=== PATIENT | male | born 1955 | race Caucasian/White ===

== ENCOUNTER 2019-12-10 05:31 | Emergency (ER) | payer MEDICAID, OTHER ==
[~2019-12-10] VITALS: Ht 165.1 cm; Wt 66.7 kg
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
--- NOTE | 2019-12-10 06:17 | NUR ---
AT BEDSIDE FOR EVAL.
--- NOTE | 2019-12-10 06:32 | NUR ---
SENT TO CT.
--- NOTE | 2019-12-10 07:01 | NUR ---
EMT AT BEDSIDE FOR WOUND CARE.
--- NOTE | 2019-12-10 07:15 | NUR ---
Patient is resting comfortably in bed. Easily aroused. VSS.
[2019-12-10 09:25] VITALS: BP 150/76
--- NOTE | 2019-12-10 09:25 | NUR ---
PT. VERBALIZED UNDERSTANDING OF AFTERCARE INSTRUCTIONS.Patient discharged to home in stable condition. Written and verbal after care instructions given. Patient verbalizes understanding of instruction.
== END 2019-12-10 09:26 | disposition home or self-care (01) ==
LOC: ER 05:36
DX: S02.2XXA Fracture of nasal bones, initial encounter for closed fracture (principal); S00.81XA Abrasion of other part of head, initial encounter; Z88.0 Allergy status to penicillin; Y04.0XXA Assault by unarmed brawl or fight, initial encounter; Y93.89 Activity, other specified; Y92.89 Other specified places as the place of occurrence of the external cause; Y99.8 Other external cause status
CPT/HCPCS: 70450; 70486; 99285; A6403

== ENCOUNTER 2020-01-10 17:08 | Emergency (ER) | payer MEDICAID ==
[~2020-01-10] VITALS: Ht 165.1 cm; Wt 63.5 kg
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
[2020-01-10] MEDS ORDERED: DEXAMETHASONE SOD PHOSPHATE 10 MG/ML VIAL ONE (17:47)
[2020-01-10] MEDS ORDERED: ACETAMINOPHEN 325 MG TABLET ONE (17:47)
[2020-01-10] MEDS: ACETAMINOPHEN 325 MG TABLET PO ONE (17:51)
[2020-01-10] MEDS: DEXAMETHASONE SOD PHOSPHATE 10 MG/ML VIAL IM ONE (17:51)
--- NOTE | 2020-01-10 18:02 | NUR ---
PT PROVIDED WITH MEAL
--- NOTE | 2020-01-10 18:48 | NUR ---
Patient given written and verbal discharge instructions. Patient verbalizes understanding of instructions. Patient is ambulatory with steady gait. Refuses offer of prison placement. Patient given list of available shelters in surrounding area. In proper clothing upon discharge, name band removed. All belongings with patient.
[2020-01-10 18:50] VITALS: BP 132/74
== END 2020-01-10 18:51 | disposition home or self-care (01) ==
LOC: ER 17:10
DX: S49.91XA Unspecified injury of right shoulder and upper arm, initial encounter (principal); R07.89 Other chest pain; Z59.0 Homelessness; Z88.0 Allergy status to penicillin; X58.XXXA Exposure to other specified factors, initial encounter; Y93.89 Activity, other specified; Y92.89 Other specified places as the place of occurrence of the external cause; Y99.8 Other external cause status
CPT/HCPCS: 71045; 73030; 96372; 99284; J1100

== ENCOUNTER 2020-01-11 16:59 | Emergency (ER) | payer MEDICAID ==
[~2020-01-11] VITALS: Ht 157.5 cm; Wt 59.0 kg
[2020-01-11 17:04] VITALS: BP 140/75
[2020-01-11 18:19] LABS: BASOPHILS % (AUTO) 0.1 % (0.0-2.0); HEMATOCRIT 35 % (39-51); HEMOGLOBIN 11.7 g/dL (13.5-17.5); LYMPHOCYTES # (AUTO) 0.5 /CMM (0.8-4.8); MEAN CORPUSCULAR HGB CONC 33 g/dl (31.0-36.0); MEAN CORPUSCULAR VOLUME 92 fL (80-96); MONOCYTES # (AUTO) 0.2 /CMM (0.1-1.30); MONOCYTES % (AUTO) 4.4 % (2.0-12.0); NEUTROPHILS # (AUTO) 4.9 /CMM (1.8-8.9); NEUTROPHILS % (AUTO) 86.5 % (43.0-81.0); PLATELET COUNT (AUTO) 164 /CMM (150-450); RED BLOOD CELL COUNT(AUTO) 3.85 MIL/uL (4.5-6.0); WHITE BLOOD COUNT (AUTO) 5.6 K/uL (4.3-11.0)
[2020-01-11 18:34] LABS: CALCIUM, SERUM 8.5 mg/dL (8.5-10.1); CREATININE 0.9 mg/dL (0.6-1.3); POTASSIUM 3.6 mmol/L (3.5-5.1)
--- NOTE | 2020-01-11 19:16 | NUR ---
Took over pt care. Pt ambulatory with steady gait. Provided with food and tap card. Patient discharged to home in stable condition. Written and verbal after care instructions given. Patient verbalizes understanding of instruction.
== END 2020-01-11 19:18 | disposition home or self-care (01) ==
LOC: ER 17:03
DX: R53.1 Weakness (principal); D64.9 Anemia, unspecified; F17.200 Nicotine dependence, unspecified, uncomplicated; Z88.0 Allergy status to penicillin; Z59.0 Homelessness
CPT/HCPCS: 36415; 80048-TC; 83735-TC; 85025-TC

== ENCOUNTER 2020-02-02 16:19 | Emergency (ER) | payer MEDICAID ==
[~2020-02-02] VITALS: Ht 157.5 cm; Wt 60.3 kg
[2020-02-02] MEDS ORDERED: ACETAMINOPHEN 325 MG TABLET PO ONE (18:00)
--- NOTE | 2020-02-02 18:30 | NUR ---
dinner tray given
[2020-02-02] MEDS ORDERED: ACETAMINOPHEN 325 MG TABLET ONE (18:50)
--- NOTE | 2020-02-02 20:15 | NUR ---
Patient discharged to home in stable condition. Written and verbal after care instructions given. pt aox4. Patient verbalizes understanding of instruction. ambulatory with a steady gait. pt provided with food, dressed with appropirate clothing, pt provided with halfway info and tap card.
[2020-02-02 20:27] VITALS: BP 124/75
== END 2020-02-02 20:28 | disposition home or self-care (01) ==
LOC: ER 16:40
DX: M25.511 Pain in right shoulder (principal); G89.29 Other chronic pain; F17.200 Nicotine dependence, unspecified, uncomplicated; Z59.0 Homelessness; Z88.0 Allergy status to penicillin; Z60.2 Problems related to living alone

== ENCOUNTER 2020-02-04 14:13 | Emergency (ER) | payer MEDICAID ==
[~2020-02-04] VITALS: Ht 157.5 cm; Wt 60.3 kg
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
--- NOTE | 2020-02-04 14:41 | NUR ---
Dr Isabel at bedside
--- NOTE | 2020-02-04 15:23 | NUR ---
Patient given written and verbal discharge instructions. Patient verbalizes understanding of instructions. Patient is ambulatory with steady gait. Refuses offer of jail placement. Patient given list of available shelters in surrounding area. In proper clothing upon discharge, name band removed. All belongings returned.
[2020-02-04 15:26] VITALS: BP 139/79
== END 2020-02-04 15:26 | disposition home or self-care (01) ==
LOC: ER 14:17
DX: F10.129 Alcohol abuse with intoxication, unspecified (principal); F17.200 Nicotine dependence, unspecified, uncomplicated; Z88.0 Allergy status to penicillin; Z60.2 Problems related to living alone; Y90.9 Presence of alcohol in blood, level not specified

== ENCOUNTER 2020-02-10 19:30 | Emergency (ER) | payer MEDICAID, MEDICARE ==
[~2020-02-10] VITALS: Ht 170.2 cm; Wt 66.7 kg
--- NOTE | 2020-02-10 19:39 | NUR ---
JOSE ALEJANDRO FROM [facility]. TO ER BED 11. AAOX4. NOT IN RESP DISTRESS, BRETHING EVEN AND UNLABORED. CAME IN FOR "NOT FEELING WELL", R SIDED BODY PAIN AND FEELING NERVOUS. NO NEURO DEFICIT NOTED. PT STATES THAT HE HAS PAIN FROM R SIDE OF HEAD DOWN TO HIS R LEG. AWAITING MD FOR EVAL.
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
[2020-02-10] MEDS ORDERED: IV NS 0.9% 1,000 ML BAG IV ONE (20:00)
[2020-02-10 20:05] LABS: EOSINOPHILS % (AUTO) 5.8 % (0.0-6.0); HEMATOCRIT 36 % (39-51); LYMPHOCYTES # (AUTO) 1.4 /CMM (0.8-4.8); LYMPHOCYTES % (AUTO) 30.2 % (20.0-44.0); MEAN CORPUSCULAR HGB CONC 33 g/dl (31.0-36.0); MEAN CORPUSCULAR VOLUME 93 fL (80-96); MONOCYTES # (AUTO) 0.4 /CMM (0.1-1.30); MONOCYTES % (AUTO) 8.1 % (2.0-12.0); NEUTROPHILS # (AUTO) 2.6 /CMM (1.8-8.9); NEUTROPHILS % (AUTO) 54.9 % (43.0-81.0); PLATELET COUNT (AUTO) 189 /CMM (150-450); RED BLOOD CELL COUNT(AUTO) 3.91 MIL/uL (4.5-6.0); WHITE BLOOD COUNT (AUTO) 4.7 K/uL (4.3-11.0)
[2020-02-10 20:15] LABS: CALCIUM, SERUM 9.1 mg/dL (8.5-10.1); CARBON DIOXIDE 27 mmol/L (21-32); CHLORIDE 105 mmol/L (98-107); GLUCOSE 104 mg/dL (74-106); POTASSIUM 3.4 mmol/L (3.5-5.1); SODIUM SERUM 142 mmol/L (136-145); UREA NITROGEN, BLOOD 18 mg/dL (7-18)
--- NOTE | 2020-02-10 20:30 | NUR ---
PT UNABLE TO PROVIDE URINE SAMPLE AT THIS TIME. MD SANTANA
[2020-02-10 20:36] LABS: ALANINE AMINOTRANSFERASE 21 U/L (12-78); ALBUMIN 3.8 g/dL (3.4-5.0); ALCOHOL, BLOOD 326 mg/dL (0-0); ALKALINE PHOSPHATASE 70 U/L (46-116); ASPARTATE AMINOTRANSFERASE 24 U/L (15-37); BILIRUBIN,DIRECT 0.1 mg/dL (0.0-0.2); BILIRUBIN,TOTAL 0.4 mg/dL (0.2-1.0); TOTAL PROTEIN, SERUM 7.1 g/dL (6.4-8.2)
[2020-02-10 20:37] LABS: ACETAMINOPHEN < 2 ug/ml (10-30); SALICYLATE < 2.8 mg/dL (2.8-20.0)
[2020-02-10 20:42] LABS: SERUM AMMONIA 21 umol/L (11-32)
[2020-02-10 23:06] LABS: CREATINE KINASE, TOTAL 264 U/L (39-308)
--- NOTE | 2020-02-11 02:03 | NUR ---
PT RESTING COMFORTABLY IN BED. NAD NOTED. VSS. WILL CONTINUE TO MONITOR
--- NOTE | 2020-02-11 05:16 | NUR ---
PT RESTING COMFORTABLY IN BED. NAD NOTED. VSS. WILL MONITOR ACCORDINGLY
--- NOTE | 2020-02-11 06:34 | NUR ---
Patient given written and verbal discharge instructions. Patient verbalizes understanding of instructions. Patient is ambulatory with steady gait. Refuses offer of [facility] placement. Patient given list of available shelters in surrounding area.
[2020-02-11 06:35] VITALS: BP 124/84
== END 2020-02-11 06:36 | disposition home or self-care (01) ==
LOC: ER 19:32
DX: F10.129 Alcohol abuse with intoxication, unspecified (principal); R94.31 Abnormal electrocardiogram [ECG] [EKG]; Y90.8 Blood alcohol level of 240 mg/100 ml or more; Z59.0 Homelessness; Z88.0 Allergy status to penicillin; Z60.2 Problems related to living alone
CPT/HCPCS: 36415; 71045; 80048; 80076; 80307; 80329; 82010; 82140; 82550; 82962; 83605; 84484; 85025; 85730; 87040 ×2; 93005; 99285; G0480; J7030

== ENCOUNTER 2020-05-04 07:01 | Emergency (ER) | payer MEDICAID ==
[~2020-05-04] VITALS: Ht 165.1 cm; Wt 68.5 kg
--- NOTE | 2020-05-04 07:15 | NUR ---
BED 1 PT BIBRA C/O GENERALIZED 'BODY PAIN ALL OVER' 01/18. MEDICS REPORTED THAT HE C/O ABD PAIN BUT PT DENIES AT THE MOMENT. VS CHECKED. AWAITING MD FLANNERY
[2020-05-04 08:09] LABS: BASOPHILS % (AUTO) 0.9 % (0.0-2.0); EOSINOPHILS % (AUTO) 3.2 % (0.0-6.0); HEMATOCRIT 42 % (39-51); HEMOGLOBIN 13.8 g/dL (13.5-17.5); LYMPHOCYTES # (AUTO) 1.3 /CMM (0.8-4.8); LYMPHOCYTES % (AUTO) 33.8 % (20.0-44.0); MEAN CORPUSCULAR HGB CONC 33 g/dl (31.0-36.0); MEAN CORPUSCULAR VOLUME 93 fL (80-96); MONOCYTES # (AUTO) 0.4 /CMM (0.1-1.30); MONOCYTES % (AUTO) 9.5 % (2.0-12.0); NEUTROPHILS % (AUTO) 52.6 % (43.0-81.0); PLATELET COUNT (AUTO) 218 /CMM (150-450); RED BLOOD CELL COUNT(AUTO) 4.58 MIL/uL (4.5-6.0); WHITE BLOOD COUNT (AUTO) 3.8 K/uL (4.3-11.0)
[2020-05-04 08:23] LABS: CALCIUM, SERUM 8.9 mg/dL (8.5-10.1); CREATININE 0.9 mg/dL (0.6-1.3); POTASSIUM 3.7 mmol/L (3.5-5.1)
[2020-05-04 08:29] LABS: ALBUMIN 3.9 g/dL (3.4-5.0); BILIRUBIN,DIRECT 0.1 mg/dL (0.0-0.2); BILIRUBIN,TOTAL 0.3 mg/dL (0.2-1.0); TOTAL PROTEIN, SERUM 7.5 g/dL (6.4-8.2)
--- NOTE | 2020-05-04 11:21 | NUR ---
IV removed. Catheter intact and site benign. Pressure and 4x4 applied to site. No bleeding noted. Patient discharged to home in stable condition. Written and verbal after care instructions given. Patient verbalizes understanding of instruction.
[2020-05-04 11:22] VITALS: BP 126/72
== END 2020-05-04 11:23 | disposition home or self-care (01) ==
LOC: ER 07:06
DX: F10.10 Alcohol abuse, uncomplicated (principal); Z88.0 Allergy status to penicillin; Z60.2 Problems related to living alone; Y90.8 Blood alcohol level of 240 mg/100 ml or more
CPT/HCPCS: 36415; 80048-TC; 80076-TC; 85025-TC; G0480

== ENCOUNTER 2021-01-09 06:40 | Emergency (ER) | payer BC, MEDICAID ==
[~2021-01-09] VITALS: Ht 167.6 cm; Wt 64.9 kg
[2021-01-09 06:43] VITALS: BP 131/72
[2021-01-09] MEDS: IBUPROFEN 600 MG TABLET PO ONE (07:13)
== END 2021-01-09 07:13 | disposition home or self-care (01) ==
LOC: ER 06:43
DX: M79.605 Pain in left leg (principal); M79.604 Pain in right leg; F17.200 Nicotine dependence, unspecified, uncomplicated; Z59.0 Homelessness; Z88.0 Allergy status to penicillin; Z60.2 Problems related to living alone